=== PATIENT | female | born 1975 | race Caucasian/White ===

== ENCOUNTER 2018-04-24 20:14 | Emergency (ER) | payer SELFPAY ==
[2018-04-24 20:26] VITALS: BP 127/90
--- NOTE | 2018-04-24 21:01 | ER Document Report ---
ED Extremity Problem, Lower - General Chief Complaint: Knee Pain Stated Complaint: KNEE INJURY Time Seen by Provider: 04/24/18 20:47 Mode of Arrival: Ambulatory Information source: Patient TRAVEL OUTSIDE OF THE [place] IN LAST 30 DAYS: No - HPI Patient complains to provider of: Injury Location: Knee Where: Home Notes: Patient is here with complaints of left knee pain. The patient states that she was walking a week ago and twisted and fell and injured her left knee. She denies any other injuries. She states that she has had pain in this knee since that occurred. She has not been evaluated for this yet. She states the pain is worse when she walks or moves her knee, it seems to be somewhat better when she rests. She denies any numbness, Leslie, weakness. No fever. No redness. No nausea, vomiting, diarrhea. No rash. No chest pain or shortness of breath. She denies any other complaints or injuries at this time. Patient has an extensive allergy list, she states the only thing she can take for pain is [place], Percocet, Tylenol with codeine. She states that she has been taking extra strength Tylenol without relief of her pain. - Related Data Allergies/Adverse Reactions: hydromorphone [From Dilaudid] Allergy (Verified 04/24/18 21:25) ibuprofen Allergy (Verified 04/24/18 21:25) ketorolac [From Toradol] Allergy (Verified 04/24/18 21:25) meperidine [From Demerol] Allergy (Verified 04/24/18 21:25) morphine Allergy (Verified 04/24/18 21:25) Penicillins Allergy (Verified 04/24/18 21:25) tramadol Allergy (Verified 04/24/18 21:25) Past Medical History - Social History Smoking Status: Current Every Day Smoker Family History: Reviewed & Not Pertinent Past Surgical History: Reports: Hx Section - x3, Hx Hysterectomy - Immunizations Immunizations up to date: No Hx Diphtheria, Pertussis, Tetanus Vaccination: No Review of Systems - Review of Systems -: Yes All other systems reviewed and negative Physical Exam - Vital signs Vitals: Temp Pulse Resp BP Pulse Ox 99.3 F 93 18 127/90 H 96 04/24/18 20:25 04/24/18 20:25 04/24/18 20:25 04/24/18 20:25 04/24/18 20:25 - Notes Notes: GENERAL: alert, cooperative, nontoxic, no distress. HEAD: normocephalic, atraumatic EYES: conjunctiva pink without discharge, no external redness or swelling. EARS: no external swelling, no external redness NOSE: atraumatic, no external swelling MOUTH/THROAT: mucous membranes moist and pink NECK: soft, supple, full range of motion, no meningismus. CHEST: no distress, lungs clear and equal throughout. No wheezing, rales, rhonchi. CARDIAC: regular rate and rhythm, no murmur, normal capillary refill, normal pulses. BACK: full range of motion, no CVA tenderness. EXTREMITIES: Mild swelling to the left knee. Slightly limited range of motion secondary to pain. Tenderness to the lateral aspect of the left knee. No significant effusion. Ligament are intact on limited knee exam based on patient 's pain. She is able to do a normal straight leg raise. Normal pulse and sensation distally. There is no redness. Hip and ankle are unremarkable. NEURO: alert and oriented 3, no focal deficits, full range of motion of all extremities. PYSCH: appropriate mood, affect. Patient is cooperative. SKIN: pink, warm, dry, no rash. Course - Re-evaluation Re-evalutation: 04/24/18 22:09 Patient is nontoxic-appearing with stable vitals. She is here with complaints of left knee pain. She states that she twisted and fell on her knee last week and continues to have pain. On exam she has minimal swelling. There is no redness, no fever, no signs of infection. Neurovascular she is intact. No obvious ligament instability on limited knee exam based on her pain. X-ray shows no acute fracture per the radiologist. Patient had an [place] wrap applied will be given crutches. 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 The patient has an extensive allergy list. She is instructed to rest, ice, elevate the knee. Follow-up with orthopedics at the next available appointment, sooner for worsening pain, fever, numbness, tingling, weakness, any further concerns. Your blood pressure was elevated during today's visit. Have this rechecked with your doctor. The patient's emergency department workup and current diagnosis were explained to the patient and or family. Follow-up instructions were provided. Medications if prescribed were discussed. Instructions for when to return to the emergency department including specific worrisome symptoms were discussed with the patient and/or family. - Vital Signs Vital signs: Temp Pulse Resp BP Pulse Ox 99.3 F 93 18 127/90 H 96 04/24/18 20:25 04/24/18 20:25 04/24/18 20:25 04/24/18 20:25 04/24/18 20:25 - Diagnostic Test Radiology reviewed: Image reviewed, Reports reviewed - Negative left knee Procedures - Immobilization left knee Pre-Proc Neuro Vasc Exam: Normal Immobilizer type: [place] wrap Performed by: PCT Post-Proc Neuro Vasc Exam: Normal Alignment checked and good: Yes Discharge - Discharge Clinical Impression: Left knee sprain Qualifiers: Encounter type: initial encounter Involved ligament of knee: other ligament Qualified Code(s): S83.8X2A - Sprain of other specified parts of left knee, initial encounter Condition: Stable Disposition: HOME, SELF-CARE Instructions: Use of Crutches ([facility]), Ice & Elevation ([facility]), Sprained Knee ([facility]) Additional Instructions: Wear [place] wrap and use crutches as needed for pain. Take 1000 mg of Tylenol every 6 hours as needed for pain. Apply ice to the sore area. Follow-up with orthopedics or your primary care doctor at the next available appointment, sooner for worsening pain, fever, redness, numbness, tingling, weakness, any further concerns. Your blood pressure was elevated during today's visit. Have this rechecked with your doctor. Forms: Elevated Blood Pressure, Smoking Cessation Education Referrals: BLAISE SOLER [NO LOCAL MD] - Follow up as needed MAE REDDY MD [ACTIVE STAFF] - Follow up as needed
--- NOTE | 2018-04-24 21:33 | RADIOLOGY REPORT (SQ) ---
EXAM DESCRIPTION: KNEE LEFT 4 VIEW COMPLETED DATE/TIME: 04/24/2018 9:07 pm REASON FOR STUDY: pain COMPARISON: None. NUMBER OF VIEWS: Four views. TECHNIQUE: AP, lateral, and both oblique radiographic images acquired of the left knee. LIMITATIONS: None. FINDINGS: MINERALIZATION: Normal. BONES: No acute fracture or dislocation. No worrisome bone lesions. JOINT: No effusion. SOFT TISSUES: No soft tissue swelling. No radio-opaque foreign body. OTHER: No other significant finding. IMPRESSION: NEGATIVE STUDY OF THE LEFT KNEE. NO RADIOGRAPHIC EVIDENCE OF ACUTE INJURY. TECHNICAL DOCUMENTATION: JOB ID: [id number] [employer]- All Rights Reserved Reading location - IP/workstation name: [email or web address]
[2018-04-24] MEDS ORDERED: HYDROCODONE/ACETAMINOPHEN 5-325 MG TABLET PO ONE (22:08)
== END 2018-04-24 22:37 | disposition home or self-care (01) ==
LOC: ER 20:14
DX: S83.92XA Sprain of unspecified site of left knee, initial encounter (principal); M25.562 Pain in left knee; W19.XXXA Unspecified fall, initial encounter; Y93.01 Activity, walking, marching and hiking; R03.0 Elevated blood-pressure reading, without diagnosis of hypertension; F17.200 Nicotine dependence, unspecified, uncomplicated; Z88.5 Allergy status to narcotic agent; Z88.6 Allergy status to analgesic agent; Z88.0 Allergy status to penicillin; Z88.8 Allergy status to other drugs, medicaments and biological substances
CPT/HCPCS: 99283

== ENCOUNTER 2018-05-28 00:11 | Emergency (ER) | payer SELFPAY ==
[2018-05-28] MEDS ORDERED: HYDROCODONE/ACETAMINOPHEN 5-325 MG TABLET PO ONE (01:38)
[2018-05-28] MEDS ORDERED: METAXALONE 800 MG TABLET PO ONE (01:38)
--- NOTE | 2018-05-28 02:11 | ER Document Report ---
ED General - General Chief Complaint: Fall Injury Stated Complaint: FALL, KNEE, BACK PAIN Time Seen by Provider: 05/28/18 01:06 Notes: Patient is a 42-year-old female presents with complaint of a fall that happened yesterday. Patient says she has about left knee and sometimes her knee gives out she will fall. She says she thinks is what happened yesterday. She was walking to the fridge to get some milk and her knee gave out and she fell backwards onto her back. She has some pain across her lower back this more midline into the left. She says that she had some tingling sensations running into her legs. She denies actual numbness. She denies any weakness into her legs. No loss of bowel control. No urinary retention. No fevers. She also complains of pain into her right shoulder from the fall. Pain is mainly in the anterior aspect of her right shoulder. She has been seen by her primary care doctor for her left knee pain. She has had knee injections but it is feels that they have made her pain worse. She has not yet seen an orthopedist. TRAVEL OUTSIDE OF THE [place] IN LAST 30 DAYS: No - Related Data Allergies/Adverse Reactions: hydromorphone [From Dilaudid] Allergy (Verified 04/24/18 21:25) ibuprofen Allergy (Verified 04/24/18 21:25) ketorolac [From Toradol] Allergy (Verified 04/24/18 21:25) meperidine [From Demerol] Allergy (Verified 04/24/18 21:25) morphine Allergy (Verified 04/24/18 21:25) Penicillins Allergy (Verified 04/24/18 21:25) tramadol Allergy (Verified 04/24/18 21:25) Past Medical History - Social History Smoking Status: Current Every Day Smoker Chew tobacco use (# tins/day): No Frequency of alcohol use: None Drug Abuse: None Family History: Reviewed & Not Pertinent Patient has suicidal ideation: No Patient has homicidal ideation: No Renal/ Medical History: Denies: Hx Peritoneal Dialysis Past Surgical History: Reports: Hx Section - x3, Hx Hysterectomy - Immunizations Immunizations up to date: No Hx Diphtheria, Pertussis, Tetanus Vaccination: No Review of Systems - Review of Systems Notes: My Normal Review Basic REVIEW OF SYSTEMS: CONSTITUTIONAL : Denies fever, chills, or sweats. Denies recent illness. RESPIRATORY: Denies cough, cold, or chest congestion. Denies shortness of breath, difficulty breathing, or wheezing. GASTROINTESTINAL: Denies abdominal pain. Denies nausea, vomiting, or diarrhea. Denies constipation. Last BM: GENITOURINARY: Denies difficulty urinating, painful urination, burning, frequency, or blood in urine. MUSCULOSKELETAL: Low back pain, right shoulder pain, left knee pain. SKIN: Denies rash or skin lesions. NEUROLOGICAL: Denies altered mental status or loss of consciousness. Denies headache. Denies weakness or paralysis or loss of use of either side. Denies problems with gait or speech. Denies sensory or motor loss. ALL OTHER SYSTEMS REVIEWED AND NEGATIVE. Physical Exam - Vital signs Vitals: Temp Pulse Resp BP Pulse Ox 97.7 F 84 18 114/87 H 98 05/28/18 00:19 05/28/18 00:19 05/28/18 00:19 05/28/18 00:05/28/18 00:19 - Notes Notes: General Appearance: Well nourished, alert, cooperative, no acute distress, moderate obvious discomfort. Vitals: reviewed, See vital signs table. Head: no swelling or tenderness to the head Eyes: PERRL, EOMI, Conjuctiva clear Mouth: No decreasd moisture Neck: Supple, no neck tenderness, No thyromegaly Back: Pain palpation over midline lumbar spine and left lumbar paraspinal musculature. No step-offs or deformities. No bruising or swelling. Thoracic spine is nontender to palpation. Lungs: No wheezing, No rales, No rhonci, No accessory muscle use, good air exchange bilaterally. Heart: Normal rate, Regular rythm, No murmur, no rub Abdomen: Normal BS, soft, No rigidity, No abdominal tenderness, No guarding, no rebound, no abdominal masses, no organomegaly Extremities: strength 5/5 in all extremities, good pulses in all extremities, left upper extremity is nontender. Right lower extremity is nontender. Patient does have some tenderness palpation over lateral aspect of the left knee. Small amount of swelling to left knee. No bruising. Remainder of left lower extremity is nontender. Patient has pain to palpation over anterior aspect of right shoulder and pain with any abduction or flexion of the right shoulder. Patient is able to still flex her shoulder on her own. No pain to palpation of elbow hand or wrist., no edema. Skin: warm, dry, appropriate color, no rash Neuro: speech clear, oriented x 3, normal affect, responds appropriately to questions. Patient is able lift both her legs off the bed without any difficulty. She has good strength with plantar dorsiflexion against resistance. Good distal sensation on exam of both lower extremities. Course - Re-evaluation Re-evalutation: 05/28/18 06:10 Imaging studies initially. Patient does have chronic knee pain. She has never seen orthopedist about this. Pain is mostly lateral aspect in her knee sometimes gives out. Suspect she may have a meniscal lateral collateral ligament injury. I will refer her to orthopedics. Encourage her to to wear her knee brace. She does have any brace at home but says it does not help with the pain but informed her that would most likely help with stability therefore she should wear this. Patient agrees to do so. Encouraged her return to ER if she has intractable pain, loss of bowel control, urinary retention, weakness or numbness into the legs, or if she has any further concerns. Patient agrees with plan will be discharged home. Dictation of this chart was performed using voice recognition software; therefore, there may be some unintended grammatical errors. - Vital Signs Vital signs: Temp Pulse Resp BP Pulse Ox 97.7 F 85 17 132/87 H 100 05/28/18 00:19 05/28/18 03:36 05/28/18 03:36 05/28/18 03:36 05/28/18 03:36 Discharge - Discharge Clinical Impression: Back pain Qualifiers: Back pain location: low back pain Chronicity: acute Back pain laterality: left Sciatica presence: without sciatica Qualified Code(s): M54.5 - Low back pain Knee pain, chronic Qualifiers: Laterality: left Qualified Code(s): M25.562 - Pain in left knee Shoulder contusion Qualifiers: Encounter type: initial encounter Laterality: right Qualified Code(s): S40.011A - Contusion of right shoulder, initial encounter Condition: Good Disposition: HOME, SELF-CARE Additional Instructions: Please follow up adelina Tobar, orthopedist, for reevaluation and further treatment options in regards to your knee. Please wear your knee brace as it will help support your knee and decrease the chance of you falling. please return to the ER immediately if you have loss of bowel control, inability to urinate, weakness or increasing numbness into your legs, or if you have any further concerns. Prescriptions: Hydrocodone/Acetaminophen [[place] 5-325 mg Tablet] 1 tab PO Q4 PRN #6 tablet PRN Reason: For Breakthrough Pain Metaxalone [Skelaxin 800 mg Tablet] 800 mg PO ASDIR PRN #20 tablet PRN Reason: Referrals: YANELY PADILLA MD [ACTIVE STAFF] - 05/31/18
--- NOTE | 2018-05-28 02:29 | RADIOLOGY REPORT (SQ) ---
EXAM DESCRIPTION: CT LUMBAR SPINE WITHOUT IV CONTRAST COMPLETED DATE/TME: 05/28/2018 01:37 CLINICAL HISTORY: 42 years Female, trauma. fell from standing landing on back. Comparison: None. Technique: No contrast. Coronal and sagittal reformat. This exam was performed according to our departmental dose-optimization program, which includes automated exposure control, adjustment of the mA and/or kV according to patient size and/or use of iterative reconstruction technique.[facility]: Dose Right [facility]: CareDose [facility]: Dose Right [facility]: Teradose 4D [facility]: [employer] LIMITATIONS: None Findings: Mild disc desiccation, normal alignment and curvature, normal vertebral and intervertebral heights, and the following: T11-T12: Moderate central disc protrusion causes moderate thecal sac compression. T12-L1: Small left paracentral disc protrusion mildly indents the left paracentral thecal sac. L1-L2: Small disc bulge. L2 through S1: Negative. No fracture. Unremarkable partially imaged post anterior retroperitoneum, posterior lumbar tissues, and sacroiliac joints. IMPRESSION: Protrusive disc disease causes moderate T11-T12 thecal sac compression.
--- NOTE | 2018-05-28 02:40 | RADIOLOGY REPORT (SQ) ---
EXAM DESCRIPTION: XR KNEE 4 OR MORE VIEWS COMPLETED DATE/TME: 05/28/2018 00:00 CLINICAL HISTORY: 42 years Female, fall COMPARISON: 6.2.18 Findings: Ossicular fragment enthesophytes associated with the distal patellar tendon measure up to 1.8 cm each, stable. No effusion.. Bones, joints, and soft tissues of the XR LEFT KNEE 4 OR MORE VIEWS appear otherwise intact. IMPRESSION: No acute findings.
--- NOTE | 2018-05-28 02:41 | RADIOLOGY REPORT (SQ) ---
EXAM DESCRIPTION: XR SHOULDER 2 OR MORE VIEWS COMPLETED DATE/TME: 05/28/2018 00:00 CLINICAL HISTORY: 42 years Female, fall COMPARISON: None. Findings: Bones, joints, and soft tissues of the XR RIGHT SHOULDER 3 VIEWS appear intact. IMPRESSION: No acute findings.
[2018-05-28] MEDS ORDERED: HYDROCODONE/ACETAMINOPHEN 5-325 MG (6 TAB/ER DISP) PO PRN (03:24)
[2018-05-28 03:38] VITALS: BP 132/87
== END 2018-05-28 03:39 | disposition home or self-care (01) ==
LOC: ER 00:11
DX: S40.011A Contusion of right shoulder, initial encounter (principal); M54.5 Low back pain; M25.511 Pain in right shoulder; W18.39XA Other fall on same level, initial encounter; Y93.89 Activity, other specified; M25.462 Effusion, left knee; M25.562 Pain in left knee; G89.29 Other chronic pain; R20.2 Paresthesia of skin; F17.200 Nicotine dependence, unspecified, uncomplicated; Z88.5 Allergy status to narcotic agent; Z88.6 Allergy status to analgesic agent; Z88.0 Allergy status to penicillin; Z88.8 Allergy status to other drugs, medicaments and biological substances
CPT/HCPCS: 99284; 73564; 73030; 72131; J3490